=== PATIENT | female | born 1975 | race Caucasian/White ===

== ENCOUNTER 2016-10-06 11:58 | Day surgery (SDC) | payer OTHER ==
[~2016-10-06 11:58] MED LIST: NO HOME MEDS; NORCO 5/325 TAB1 TAB PO; PRENATAL VITAMI; SYNTHROID100 MC1 PO
[2016-10-06 13:16] LABS: HCT-HEMATOCRIT 39.7 % (34.0-49.0); HGB-HEMOGLOBIN 13.1 gm/dl (12.0-15.5); RED CELL DISTRIBUTION WIDTH 15.9 % (12.4-16.4)
[2016-10-06 13:28] LABS: ANION GAP 12 mmol/L (0-20); BLOOD UREA NITROGEN 7 mg/dl (6-24); CALCIUM 8.8 mg/dl (8.5-10.5); CARBON DIOXIDE-VENOUS 25 mmol/L (22-32); CHLORIDE 109 mmol/l (96-110); CREATININE 0.88 mg/dl (0.50-1.10); GLUCOSE 87 mg/dL (70-110); POTASSIUM 3.9 mmol/L (3.7-5.1); SODIUM 142 mmol/L (135-145); eGFR VALUE FOR BLACK >90 mL/Min
[2016-12-01] MEDS ORDERED: VITAMIN D32000 UNI3 PO (13:36)
[2016-12-01] MEDS ORDERED: VITAMIN B-121000 MC1 PO (13:37)
[2016-12-01] MEDS ORDERED: IRON325 M3 PO (13:37)
[2016-12-04] MEDS ORDERED: PERCOCET 5-3251 EACH PO (20:09)
[2016-12-05] MEDS ORDERED: ULTRAM50 M1 PO (09:37)
[2016-12-05] MEDS ORDERED: IBUPROFEN800 M1 PO (09:37)
== END 2016-10-06 15:44 ==
LOC: SHSC 11:58 → ENDOS 14:15
PROVIDERS: Anesthesiology
PROC: 0DB98ZX Excision of Duodenum, Via Natural or Artificial Opening Endoscopic, Diagnostic (ICD-10-PCS; principal; 2016-10-06)
PROC: 0DJD8ZZ Inspection of Lower Intestinal Tract, Via Natural or Artificial Opening Endoscopic (ICD-10-PCS; 2016-10-06)
DX: D50.9 Iron deficiency anemia, unspecified (principal); Z88.1 Allergy status to other antibiotic agents; Z88.2 Allergy status to sulfonamides; Z88.8 Allergy status to other drugs, medicaments and biological substances; Z98.890 Other specified postprocedural states